=== PATIENT | male | born 1965 | race African-American/Black ===

== ENCOUNTER 2022-06-22 03:36 | Emergency (ER) | payer MEDICAID ==
[~2022-06-22] VITALS: Ht 167.6 cm; Wt 79.0 kg
[2022-06-22] MEDS ORDERED: KETOROLAC 60MG/2ML VIAL IM STA (07:36)
[2022-06-22 07:53] VITALS: BP 159/106
[2022-06-22 08:15] LABS: CLARITY URINE CLEAR (CLEAR); COLOR URINE YELLOW (YELLOW); KETONES URINE 1+ (NEGATIVE); LEUKOCYTE ESTERASE URINE NEGATIVE (NEGATIVE); NITRITE URINE NEGATIVE (NEGATIVE); OCCULT BLOOD URINE NEGATIVE (NEGATIVE); PH URINE 7.5 (4.5-8.0); PROTEIN URINE NEGATIVE (NEGATIVE); SPECIFIC GRAVITY URINE 1.024 (1.005-1.030)
== END 2022-06-22 10:56 | disposition home or self-care (01) ==
LOC: ER 03:36
DX: R10.9 Unspecified abdominal pain (principal); I10 Essential (primary) hypertension
CPT/HCPCS: 81003; 96372; 99283; J1885